=== PATIENT | female | born 1970 | race Caucasian/White ===

== ENCOUNTER → 2016-08-26 | Outpatient (CLI) | payer OTHER | LOC: CT 14:42 | DX: R31.9 Hematuria, unspecified (principal); K59.00 Constipation, unspecified | CPT/HCPCS: J7050; Q9962 ==

== ENCOUNTER → 2020-11-08 | Outpatient (CLI) | payer OTHER ==
[~2020-11-08] MED LIST: FLAGYL500 MG PO; IBUPROFEN600 MG PO; PROTONIX40 MG PO; PROZAC40 MG PO; VITAMIN D 11000 UNIT PO; ZANTAC150 MG PO; ZOFRAN ODT 4 MG4 MG GT; ZOFRAN4 MG PO
== END ==
LOC: HEART 5 09:43
DX: R06.02 Shortness of breath (principal)
CPT/HCPCS: 93306

== ENCOUNTER → 2022-01-10 | Outpatient (CLI) | payer OTHER | LOC: KOH-I 12:03 | DX: M54.9 Dorsalgia, unspecified (principal); M47.816 Spondylosis without myelopathy or radiculopathy, lumbar region | CPT/HCPCS: 72100 ==